=== PATIENT | male | born 1990 | race Caucasian/White ===

== ENCOUNTER 2018-05-12 00:28 | Emergency (ER) | payer BC ==
[~2018-05-12] VITALS: Ht 190.5 cm; Wt 79.4 kg
[2018-05-12] MEDS ORDERED: NKM (00:45)
--- NOTE | 2018-05-12 01:07 | NUR ---
ED Nurse Note: Patient presents with complaints of of cut left pointer finger x 3 hours.
[2018-05-12 01:08] VITALS: BP 122/76
[2018-05-12] MEDS ORDERED: Tetanus/Diptheria/Pertussis Vaccine 0.5ml Syr IM ONE (01:15)
--- NOTE | 2018-05-12 01:20 | NUR ---
ED Nurse Note: Patient tolerated injection well. Injection given included Tdap at the left deltoid. Patient has no s/s of acute distress.
[2018-05-12] MEDS ORDERED: CEPHALEXIN500 MG ORAL (01:42)
--- NOTE | 2018-05-12 01:42 | Emergency Room Report ---
History of Present Illness General Chief Complaint: Laceration Source: Patient Present Illness HPI Is a 27-year-old male who is ambidextrous. He presents with chief complaint laceration to the right index finger. He was washing dishes and a cup broke and cause a laceration to his right index finger. Onset just prior to arrival. No other injury. Bleeding controlled. No foreign body. Mild pain. Allergies: Coded Allergies: No Known Allergies (Unverified , 05/12/18) Patient History Past Medical History: see triage record, old chart reviewed Past Surgical History: none Pertinent Family History: none Social History: Denies: smoking Immunizations: other Reviewed Nursing Documentation: PMH: Agreed; PSxH: Agreed Nursing Documentation-PMH Past Medical History: No Stated History Review of Systems Eye: Denies: eye pain, blurred vision ENT: Denies: ear pain, nose congestion, throat swelling Respiratory: Denies: cough, shortness of breath Cardiovascular: Denies: chest pain, palpitations Gastrointestinal: Denies: abdominal pain, diarrhea, nausea, vomiting Musculoskeletal: Reports: muscle pain; Denies: back pain, joint pain Skin: Denies: rash Neurological: Denies: headache, numbness Endocrine: Denies: increased thirst, increased urine Hematologic/Lymphatic: Denies: easy bruising All Other Systems: negative except mentioned in HPI Physical Exam Vital Signs Date Time Temp Pulse Resp B/P (MAP) Pulse Ox O2 Delivery O2 Flow Rate FiO2 05/12/18 00:39 97.9 70 16 122/76 96 Room Air vitals normal Sp02 EP Interpretation: reviewed, normal General Appearance: well appearing, no apparent distress, alert Head: normocephalic, atraumatic Eyes: bilateral eye PERRL, bilateral eye EOMI ENT: hearing grossly normal, normal pharynx Neck: full range of motion, supple, no meningismus Respiratory: chest non-tender, lungs clear, normal breath sounds Cardiovascular #1: regular rate, rhythm, no murmur Gastrointestinal: normal bowel sounds, non tender, no mass, no organomegaly, no bruit, non-distended Musculoskeletal: back normal, gait/station normal, normal range of motion, other - Right index finger: There is a stellate jagged laceration on the radial aspect of the PIP joint of the finger. Full range of motion. No foreign body. No tendon laceration. Sensation normal. Neurologic: alert, oriented x3 Psychiatric: mood/affect normal Skin: warm/dry Procedures Laceration/Wound Repair Laceration/Wound Repair : Consent: Verbal Wound Location: upper extremity Wound's Depth, Shape: irregular, flap, stellate Wound Length (cm): 3 Wound Explored: clean Irrigated w/ Saline (ccs): 1000 Anesthesia: 1% Lidocaine Volume Anesthetic (ccs): 2 Wound Repaired With: sutures Suture Size/Type: 6:0, proline Number of Sutures: 5 Patient Tolerated: Well Complications: None Medical Decision Making Diagnostic Impression: Primary Impression: Finger laceration Qualified Codes: S61.210A - Laceration without foreign body of right index finger without damage to nail, initial encounter ER Course Patient with laceration. No foreign body. No tendon laceration. We'll discharge home. Last Vital Signs Date Time Temp Pulse Resp B/P (MAP) Pulse Ox O2 Delivery O2 Flow Rate FiO2 05/12/18 01:08 97.9 79 16 122/76 96 Room Air Status: improved Disposition: HOME, SELF-CARE Condition: Stable Scripts Cephalexin* (KEFLEX*) 500 Mg Capsule 500 MG ORAL TID, #21 CAP Prov: Nicholas Salgado MD 05/12/18 Patient Instructions: Laceration Care, Adult Additional Instructions: Follow-up with your doctor in 7-10 days with suture removal. Return for infection. Nicholas Salgado MD May 12, 2018 01:42
[2018-05-12] MEDS ORDERED: Bacitracin Oint UD TOPIC ONE (01:45)
[2018-05-12 01:55] VITALS: BP 122/76
--- NOTE | 2018-05-12 01:55 | NUR ---
ER DISCHARGE NOTE: Patient is cleared to be discharged per ERMD, 5 stitches was done on the right index finger. pt tolerated the procedure well. bacitracin applied and dressing applied. pt is aox4, on room air, with stable vital signs. pt was given dc and prescription instructions, pt was able to verbalize understanding, pt id band removed without complications. pt is able to ambulate with steady gait. pt took all belongings.
== END 2018-05-12 01:55 | disposition home or self-care (01) ==
LOC: EMR 01:05
DX: S61.210A Laceration without foreign body of right index finger without damage to nail, initial encounter (principal); W26.8XXA Contact with other sharp object(s), not elsewhere classified, initial encounter; Y93.G1 Activity, food preparation and clean up; Y92.010 Kitchen of single-family (private) house as the place of occurrence of the external cause
CPT/HCPCS: 90471; 90715; 99282